=== PATIENT | male | born 1970 | race Asian ===

== ENCOUNTER 2017-06-17 18:53 | Emergency (ER) | payer OTHER ==
[~2017-06-17] VITALS: Ht 180.3 cm; Wt 90.7 kg
== END 2017-06-17 20:04 | disposition left against medical advice (07) ==
LOC: ER 18:53
DX: R10.11 Right upper quadrant pain (principal)

== ENCOUNTER → 2022-02-27 | Outpatient (CLI) | payer OTHER | LOC: EDBD 02-24 08:00 → US 07:40 | PROVIDERS: ATTEND Internal Medicine Gastroenterology | DX: B19.10 Unspecified viral hepatitis B without hepatic coma (principal) | CPT/HCPCS: 76705 ==